=== PATIENT | male | born 1975 | race Caucasian/White ===

== ENCOUNTER 2017-02-13 07:11 | Emergency (ER) | payer OTHER ==
--- NOTE | 2017-02-13 07:20 | EDM.PDOC ---
ED HPI GENERAL MEDICAL PROBLEM - General Chief Complaint: Genitourinary Problem Stated Complaint: GROIN PAIN Time Seen by Provider: 02/13/17 07:20 Source of Information: Reports: Patient, RN, RN Notes Reviewed History Limitations: Reports: No Limitations - History of Present Illness INITIAL COMMENTS - FREE TEXT/NARRATIVE: Pt presents to the ER with c/o right testicular pain. He states the pain began about 2 days ago and has increased in intensity, this morning being a 6-7/10, he states after taking ibuprofen the pain is 4/10. Pt denies fever, chills, appetite change, abdominal pain, or past history of hernia or testicular problems. 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 [No Known Home Meds] 02/13/17 [History] ED ROS GENERAL - Review of Systems Review Of Systems: ROS reveals no pertinent complaints other than HPI. ED EXAM, RENAL/ - Physical Exam Exam: See Below Exam Limited By: No Limitations General Appearance: Alert, WD/WN, No Apparent Distress Eye Exam: Bilateral Eye: EOMI, Normal Inspection Ears: Normal External Exam, Hearing Grossly Normal Nose: Normal Inspection Throat/Mouth: Normal Inspection, Normal Voice, No Airway Compromise Head: Atraumatic, Normocephalic Neck: Normal Inspection, Supple, Non-Tender, Full Range of Motion Respiratory/Chest: No Respiratory Distress, Lungs Clear, Normal Breath Sounds, No Accessory Muscle Use, Chest Non-Tender Cardiovascular: Normal Peripheral Pulses, Regular Rate, Rhythm, No Edema, No Gallop, No JVD, No Murmur, No Rub GI/Abdominal: Normal Bowel Sounds, Soft, Non-Tender, No Organomegaly, No Distention, No Abnormal Bruit, No Mass (Male) Exam: No Hernia, Normal Inspection, Circumcised, Scrotum Tenderness (R ), Testicular Tenderness (R). No: Inguinal Lymphadenopathy Rectal (Males) Exam: Deferred Back Exam: Normal Inspection, Full Range of Motion Extremities: Normal Inspection, Normal Range of Motion, Non-Tender, No Pedal Edema, Normal Capillary Refill Neurological: Alert, Oriented, CN II-XII Intact, Normal Cognition, Normal Gait, Normal Reflexes, No Motor/Sensory Deficits Psychiatric: Normal Affect, Normal Mood Skin Exam: Warm, Dry, Intact, Normal Color, No Rash Lymphatic: No Adenopathy Course - Vital Signs Last Recorded V/S: Last Vital Signs Temp 98.6 F 02/13/17 07:22 Pulse 75 02/13/17 07:22 Resp 16 02/13/17 07:22 BP 109/70 02/13/17 07:22 Pulse Ox 100 02/13/17 07:22 - Orders/Labs/Meds Orders: Active Orders 24 hr Category Date Time Status Art Amador Abd Pelv Scrt Cnt Comp [US] Routine Exams 02/13/17 07:38 Taken - Radiology Interpretation Free Text/Narrative:: Scrotal US: Epididymitis See rad report Departure - Departure Time of Disposition: 10:02 Disposition: Home, Self-Care 01 Condition: Fair Clinical Impression: Epididymitis - Discharge Information Instructions: Epididymitis Forms: ED Department Discharge Additional Instructions: Levaquin 500mg orally daily for 10 days Tylenol or Ibuprofen for pain Follow up with your primary care facility if no improvement. - My Orders Last 24 Hours: My Active Orders 02/13/17 07:38 Art Amador Abd Pelv Scrt Cnt Comp [US] Routine - Assessment/Plan Last 24 Hours: My Active Orders 02/13/17 07:38 Art Amador Abd Pelv Scrt Cnt Comp [US] Routine
--- NOTE | 2017-02-13 09:44 | US ---
CLINICAL HISTORY: 41-year-old male" testicular" pain for the past 2 days. INTERPRETATION: Symmetric normal-appearing testicles identified bilaterally, i.e., normal size, anato mary configuration and homogeneous density with good blood flow. No sign of testicular mass lesion or infarct. Right testicle measures 4.9 cm L x 3.0 cm W x 2.7 cm AP diameter. Left testicle measures 5.0 cm L x 3.0 cm W x 2.1 cm AP diameter. NOTE: Asymmetric increased vascular flow edematous appearing epididymis, on the right, i.e., probable inflammation (epididymitis). No discrete epididymal cystic or solid mass lesions. No hydrocele. CONCLUSION: Epididymitis on the right. Normal testes.
== END 2017-02-13 10:13 | disposition home or self-care (01) ==
LOC: DL.ED 07:11
DX: N45.1 Epididymitis (principal)
CPT/HCPCS: 76870; 93975; 99283